=== PATIENT | male | born 1970 | race Caucasian/White ===

== ENCOUNTER 2024-02-10 20:47 | Emergency (ER) | payer MEDICARE, SELFPAY ==
[2024-02-10 20:50] VITALS: BP 149/88; PULSE 68; RESP 16; TEMP 36.4; O2SAT 98
--- NOTE | 2024-02-10 21:19 | ED.GENADUL_ITS ---
Discharge Plan Disposition Patient Disposition: Home Condition: Good Discharge Details Clinical Impression: Inverted nipple, Nipple pain, Abscess of left nipple Primary Care Provider: Unknown,Unknown ED Provider: Prema Julian Home Meds and New Rx's Prescriptions: New sulfamethoxazole-trimethoprim 800-160 mg tablet 1 tab PO BID 7 Days Qty: 14 0RF Discharge Instructions Instructions: Sulfamethoxazole/Trimethoprim (By mouth), Abscess (ED) Additional Instructions: Your history and exam are most concerning for abscess at your left nipple. As we discussed, it is imperative that you follow-up promptly with general surgery, please call tomorrow at 8 AM as they want to see you tomorrow. They are also concerned about potential breast cancer and want to ensure that they evaluate this further. The fluid collection was sent to the lab for further evaluation and testing. Please take the antibiotics as prescribed. Encourage hydration. Tylenol and ibuprofen as needed for discomfort. If you develop fever/chills, increased pain, or other new/worsening symptoms please seek care urgently once again. Otherwise, please follow-up with general surgery tomorrow. Referrals: Quintin Lei MD [ [facility] STAFF PHYSICIAN] - [facility] General Date/Time Provider Initiated Documentation: 02/10/24 21:02 . Limitations to Documentation: no limitations . Information obtained by: patient and RN notes reviewed . History of Present Illness 53 year old M presents to the emergency department with the chief complaint of swelling, pain, erythema around left nipple, described as severe and similar to prior episodes, Quality is described as stabbing and aching, and is localized to the chest. Patient reports no radiation. Patient started experiencing this week(s) and it has been constant. No relieving factors improve symptom(s), No exacerbating factors reported . Patient notes no other symptoms.. Patient did receive the following treatments prior to arrival, heat therapy Related Data Home Medications Medication Instructions Recorded Confirmed sulfamethoxazole 800 1 tab PO BID 7 days #14 tabs 02/10/24 mg-trimethoprim 160 mg tablet Previous Rx's Medication Instructions Recorded sulfamethoxazole 800 1 tab PO BID 7 days #14 tabs 02/10/24 mg-trimethoprim 160 mg tablet General Stated Complaint: GenMedical JONNA: 4 Review of Systems Constitutional Constitutional: Reports as per HPI, Denies chills, Denies fatigue, Denies fever(s), Denies malaise, Denies poor appetite, Denies weakness and Denies weight loss Musculoskeletal Musculoskeletal: Reports as per HPI Integumentary/Breasts Skin/Breast: Reports as per HPI Neurologic Neurologic: Reports as per HPI, Denies sensory deficit and Denies weakness Endocrine Endocrine: Denies fatigue Exam Const General: cooperative, healthy appearing, comfortable, no acute distress and well developed Nutritional Appearance: average body habitus and well nourished Orientation: alert and awake Chest Chest/axillae images: 2 1. Area of erythema, well-demarcated borders, tenderness with palpation, warm. Just under the nipple, patient has swelling and fluctuance. Nipple is slightly inverted on the left compared to the contralateral side. Profoundly tender to palpation. No discharge is able to be expressed. No other abnormality is notable. Resp Effort & Inspection: normal respiratory effort, able to speak in complete sentences and no respiratory distress Cardio Rate: regular rate Rhythm: regular rhythm Skin General skin exam: erythema and fluctuance Neuro General: patient alert and patient awake Cognition: normal cognition Speech: speech normal Gait: normal gait Sensory Exam: no sensory deficits noted Course Vital Signs Vital signs: Vital Signs Temperature 36.4 C 02/10/24 20:50 Pulse 68 02/10/24 20:50 Respiratory Rate 16 02/10/24 20:50 Blood Pressure 149/88 H 02/10/24 20:50 Pulse Oximetry 98 02/10/24 20:50 Temperature 36.4 C 02/10/24 20:50 Pulse 68 02/10/24 20:50 Respiratory Rate 16 02/10/24 20:50 Respiratory Effort Normal 02/10/24 20:56 Respiratory Depth Normal 02/10/24 20:56 Respiratory Pattern Normal 02/10/24 20:56 Blood Pressure 149/88 H 02/10/24 20:50 Pulse Oximetry 98 02/10/24 20:50 Oxygen Delivery Method Room Air 02/10/24 20:50 Oxygen Flow Rate 0 02/10/24 20:50 Pain Level 7 02/10/24 20:50 Procedures Abscess I/D Site: Chest Side (if applicable): Left Sedation/analgesia: None Local Anesthetic: Lidocaine 1% and With Epi Amount of anesthesia used (mL): 2 Technique: Incised with #11 Blade Amount of fluid expressed (mL): 5 Irrigation: Yes Packing used?: Iodoform Medical Decision Making Patient is a pleasant 53-year-old male with past medical history significant for SC, hypertension, hyperlipidemia, diabetes, diabetic neuropathy, presenting today with chief complaint of lump under nipple. He reports that about 2 weeks ago he began developing area of tenderness and firmness inferior to the left nipple which has since been increasing in size, pain in severity. He reports that he has been using warm compresses as this is worked well for him historically but no improvement. He denies any IV drug use. States that he smokes 1 pack/day but denies any alcohol. He has not had any fevers or chills, no other systemic symptoms. He states that the hot compresses can greatly increase his pain and he can become slightly nauseated during that time but otherwise no GI complaints. On exam, patient appears nontoxic. He is resting comfortably no acute distress. Patient has erythema and warmth as well as tenderness around the left nipple. Area of firmness concerning for potential abscess is notable. Left nipple is inverted, this is not noted on the contralateral side. Patient does not appear septic. No abnormalities palpated elsewhere about the chest. Right nipple is normal in appearance without any inversion. Ultrasound was used to evaluate the area, concerning for a large loculated abscess or multiple abscesses under the left nipple Given the location and the complexity of this abscess, I feel like it is appropriate to consult with general surgery. Discussed this plan with the patient who is in agreement. Consulted with general surgery. He advised that he is primarily concerned for breast cancer despite is initially appearing more infectious. He advised that in a patient without having any nipple piercings, trauma, lacerations that this location and the retracted nipple is very atypical. He would like to see the patient tomorrow in clinic. He did advise a small stab incision under the nipple with culture and outpatient follow-up for repeat ultrasound. He did advise placing a small wick for the patient to continue with hot compresses. For antibiotics, he advised MRSA coverage as patient is a diabetic, recommended Bactrim. Discussed this plan with the patient. We discussed her/benefits as well as expected procedural steps associated with incision and drainage, patient voiced understanding and wished to proceed. When I did speak with general surgery, I expressed my concerns with loculations and complexity of the abscess, he advises simple stab incision would likely be of great benefit and move forward with this plan this evening. Please see procedure note. Patient discussed risk/benefits as well as expected procedural steps associated with incision and drainage. Voices understanding and wished to proceed. Procedure was performed using standard sterile technique. Cleansed with chlorhexidine. After superficial lidocaine, patient was injected with 1% lidocaine with epi. Point of maximal fluctuance, just inferior to the nipple, was identified. After sufficient anesthesia was able to be obtained, a 1 cm incision was made using an 11 blade. Patient had immediate relief in his discomfort after release of purulent discharge. This was sent to lab. Further expression of pus was performed. Attempts to break up loculations were made although patient's pain did limit this to some degree. Abscess was flushed with sterile water and packed with iodoform gauze, dressing applied over this. No complications Patient tolerated procedure well. Dosing of Bactrim for tonight tomorrow morning given to the patient at the time of discharge. Rest of the prescription was sent to his pharmacy of choice. Per recommendations from general surgery, advised the patient to call their office tomorrow morning to schedule follow-up appointment tomorrow for further evaluation. We did discuss the concern regarding possible breast cancer. His history and clinical exam are most consistent with infection but given the retraction of the nipple and atypical location of this, I do certainly appreciate these concerns and to voice them to the patient. He does not have any significant family history of breast cancer. Return precautions were discussed. He will leave the dressing and packing in place until seen by general surgery. He will continue with warm compresses. All of his questions and concerns were addressed and he is agreement this plan. Quality:SDOH Health Related Social Needs: 2 No Data to Display [facility] All Active Problems (Updated 02/10/24 @ 22:47 by TIFFANIE Curry) Abscess of left nipple (Acute) Nipple pain (Acute) Inverted nipple (Acute) Social History Smoking/Tobacco Use Status: Never Smoking risk assessment performed?: Yes Alcohol Intake: never Substance use type: does not use
--- NOTE | 2024-02-10 22:03 | NUR.NOTE ---
Pt referral sent to general surgery per Eliel for possible breast cancer /abscess to be seen 02/11/24. Consult with Do teixeira today.
[2024-02-10] MEDS: Lidocaine/Epinephri/Tetracaine Topical Gel 3 ML (22:53)
[2024-02-10] MEDS: Sulfameth/Trimeth DS, 2 TABS/BTL 1 TAB PO (23:00)
[2024-02-10 23:09] VITALS: BP 120/86; PULSE 75; RESP 18; TEMP 36.8; O2SAT 97
== END 2024-02-10 23:09 | disposition home or self-care (01) ==
PROVIDERS: Emergency Provider Physician Assistant
DX: N63.20 Unspecified lump in the left breast, unspecified quadrant (principal); N64.59 Other signs and symptoms in breast; N61.1 Abscess of the breast and nipple; I10 Essential (primary) hypertension; E78.5 Hyperlipidemia, unspecified; I25.2 Old myocardial infarction; E11.40 Type 2 diabetes mellitus with diabetic neuropathy, unspecified
CPT/HCPCS: 10061; 99284; 87070; 87205

== ENCOUNTER → 2024-02-11 14:43 | Outpatient (CLI) | payer MEDICARE, SELFPAY ==
--- NOTE | 2024-02-11 11:45 | DI.US_ITS ---
Exam(s) US BREAST LT COMPLETE EXAM: US BREAST LT COMPLETE CLINICAL HISTORY: left breast abscess, N64.59. TECHNIQUE: Complete ultrasound of the breast was performed including all 4 quadrants, the retroareo lar region, and the ipsilateral axilla. COMPARISON: None. This is a 53-year-old patient was apparently seen in the emergency room last nigh t there an incision and drainage was performed. FINDINGS: LEFT BREAST ULTRASOUND: There is an irregular finding in the retroareolar region measuring approximately 2.5 x 2 cm which has appearance of an abscess. There are no other significant focal findings in 4 quadrants and scanning of the left axilla is negative for adenopathy. IMPRESSION: Appearance is consistent with a retroareolar region abscess measuring approximately 2.5 x 2 cm. Appropriate follow-up is repeat ultrasound examination after definitive surgical/antibiotic therapy. BI-RADS Category 3 - 3 month - Probably Benign Finding: Recommend follow-up A SOUND in 3 months Breast Density - Category B - Scattered areas of fibroglandular density Breast density Category C or D implies that the patient has dense breast tissue. Dense breast tissue can make it harder to find cancer on a mammogram. Dense breast tissue is also associated with an incr eased risk of breast cancer. This information about the result of the mammogram report was provided to the patient to raise their awareness. Use this report when you speak with the patient about their risks for breast cancer, which includes their family history. At that time, you may recommend additional screening tests (Ultrasoun d or MRI) as these tests may add significant information. A negative radiographic report should not delay biopsy if a dominant or clinically suspicious mass is present. Up to ten percent of cancers are not identified on mammography. A negative report may reinforce clinical impression. Adenosis and dense breasts may obscure an underlying neoplasm. False positive reports average 6 to 10%. Patient will receive a letter notifying them of these results.
[2024-02-11 13:36] LABS: HCT 54.3 % (40.0-50.0); HGB 18.5 g/dL (13.5-17.5); MCH 31.6 pg (27.0-33.0); MCHC 34.1 % (32.0-36.0); MCV 93 fL (80-95); MPV 11.3 fL (8.0-11.0); Platelet Count 242 10^3/uL (130-400); RBC 5.85 10^6/uL (4.36-5.78); RDW 12.7 % (11.8-14.1); RDW-SD 43.5 fL; WBC 12.81 10^3/uL (4.4-10.8)
[2024-02-11 13:51] LABS: ALT 28 U/L (16-63); AST 11 U/L (15-37); Alkaline Phosphatase 85 U/L (46-116); BUN 26 mg/dL (7-18); Bilirubin, Total 0.4 mg/dL (0.2-1.0); CREATININE 1.1 mg/dL (0.70-1.30); Calcium 9.7 mg/dL (8.5-10.1); Calculated LDL 79 mg/dL (<100); Chloride 102 mmol/L (98-107); Cholesterol 181 mg/dL (<200); Estimated GFR 80.77 (mL/min/1.73m2); Glucose 167 mg/dL (74-106); HDL Cholesterol 41 mg/dL (40-60); Potassium 4.5 mmol/L (3.5-5.1); Sodium 139 mmol/L (136-145); Total Protein 8.2 g/dL (6.4-8.2); Triglyceride 306 mg/dL (<150)
[2024-02-11 13:59] LABS: C-Reactive Protein 0.99 mg/dL (<or=0.5)
== END ==
PROVIDERS: PCP Family Medicine; Visit Provider Surgery
DX: N64.59 Other signs and symptoms in breast (principal); I10 Essential (primary) hypertension; E11.9 Type 2 diabetes mellitus without complications; N64.4 Mastodynia; N61.1 Abscess of the breast and nipple; K21.9 Gastro-esophageal reflux disease without esophagitis
CPT/HCPCS: 76642; 80053; 80061; 85027; 87040; 83036; 86140

== ENCOUNTER 2024-02-12 13:10 | Day surgery (SDC) | payer MEDICARE, SELFPAY ==
[2024-02-12 13:28] VITALS: BP 122/94; PULSE 76; RESP 16; TEMP 36; O2SAT 96
[2024-02-12] MEDS: Lactated Ringers 1,000 ML 80 ML IV (13:48)
[2024-02-12] MEDS: Acetaminophen 500 MG TAB 1000 MG PO (13:53)
[2024-02-12] MEDS: Gabapentin 300 MG CAP 600 MG PO (13:55)
[2024-02-12] MEDS: VANCOMYCIN/WATER (PEG) 1 GM/200 ML BAG IVPB (13:57)
--- NOTE | 2024-02-12 14:15 | RT.EKG_ITS ---
APPROVED REPORT Exam: Resting ECG Reason for Exam: Pre-op with cardiac stent hx Patient Location: O HR:72 bpm ECG Measurements Heart Rate 72 AXIS MA 155 P 35 QRSd 95 QRS 268 QT 387 T 66 QTc 424 Conclusion Sinus rhythm...normal P axis, V-rate 60- 99 Ventricular bigeminy...bigeminy string>4 w/ V complexes Inferior infarct, old...Q >35mS, II III aVF
--- NOTE | 2024-02-12 14:35 | ANES.PREOP_ITS ---
General Info Date of Service Date Performed: 02/12/24 Height: 5 ft 7 in Weight: 97.3 kg Body Mass Index (BMI): 33.5 Surgical Procedure: Operation Date: 02/12/24 12:40 Proposed Procedure Side Surgeon p I&D Breast Abscess Left Sara Abdalla DO Meds Allergies and Home Medications Allergies Allergy/AdvReac Type Severity Reaction Status Date / Time morphine Allergy Severe Anaphylaxis Verified 02/12/24 13:41 Home Medication Medication Instructions Recorded sulfamethoxazole 800 1 tab PO BID 7 days #14 tabs 02/10/24 mg-trimethoprim 160 mg tablet aspirin 81 mg capsule 81 mg PO DAILY 02/11/24 bupropion HCl 300 mg 24 hr tablet, 300 mg PO QAM 02/11/24 extended release (Wellbutrin XL) dulaglutide 3 mg/0.5 mL 3 mg subcut QWEEK 02/11/24 subcutaneous pen injector (Trulicity) gabapentin 600 mg tablet 1,200 mg PO BID 02/11/24 ipratropium bromide 18 2 puff inhalation Q6H 02/11/24 mcg/actuation aerosol inhaler lisinopril 10 mg tablet 10 mg PO DAILY 02/11/24 metformin 500 mg tablet 500 mg PO BID 02/11/24 metoprolol succinate 100 mg 100 mg PO DAILY 02/11/24 tablet,extended release 24 hr omeprazole 40 mg capsule,delayed 40 mg PO DAILY 02/11/24 release rosuvastatin 10 mg tablet 10 mg PO DAILY 02/11/24 tiotropium bromide 2.5 2 puff inhalation DAILY 02/11/24 mcg/actuation mist for inhalation (Spiriva Respimat) Current Visit Medications: Current Medications Generic Name Dose Route Start Last Admin Trade Name Freq PRN Reason Stop Dose Admin Acetaminophen 1,000 mg 02/12/24 06:00 02/12/24 13:53 Acetaminophen 500 Mg Tab PO 02/12/24 23:59 1,000 mg PREOP ULISES Administration Gabapentin 600 mg 02/12/24 06:00 02/12/24 13:55 Gabapentin 300 Mg Cap PO 02/12/24 23:59 600 mg PREOP ULISES Administration Ringer's Solution 1,000 mls @ 80 mls/hr 02/12/24 06:00 02/12/24 13:48 IV 02/12/24 23:59 80 mls/hr INFUSION ULISES Administration Ondansetron HCl 4 mg/ Sodium 52 mls @ 200 mls/hr 02/12/24 10:12 Chloride IVPB 03/13/24 10:11 Q6H PRN PRN IV Miscellaneous Supplies 1 each 02/12/24 06:00 Iv Access IV 02/12/24 23:59 DIRECTED ULISES Sodium Chloride 0 ml 02/12/24 06:00 Normal Saline Flush 10 Ml Syr IV 02/12/24 23:59 PRN PRN Sodium Chloride 0 ml 02/12/24 06:00 Normal Saline 10 Ml Vial IJ 02/12/24 23:59 DIRECTED PRN Sterile Water 0 ml 02/12/24 06:00 Water,Injection,Sterile 10 Ml Vial IJ 02/12/24 23:59 DIRECTED PRN Tramadol HCl 50 mg 02/12/24 10:12 Tramadol 50 Mg Tab PO 03/13/24 10:11 Q6H PRN PRN Pain PFSH Active Problems Active Problems: Problem Status Onset Code GERD (gastroesophageal reflux disease) K21.9 HTN (hypertension) I10 Diabetes E11.9 Abscess of left nipple N61.1 Nipple pain N64.4 Inverted nipple N64.59 Medical History Medical History Neuropathy Medical History Comments:: 02/12/24: pt has smoked 5 cigarettes prior to coming into [facility] Pt reports he as 6 stents Tobacco Smoking/Tobacco Use Status: Current every day Tobacco Type: cigarettes Alcohol Alcohol Intake: never Substance Use Substance use: Never Substance use type: does not use Vital Signs and Lab Results Vital Signs Most Recent Vital Signs in EMR: Most Recent Vital Signs Temp Pulse Resp BP Pulse Ox 36 C L 76 16 122/94 H 96 02/12/24 13:28 02/12/24 13:28 02/12/24 13:28 02/12/24 13:28 02/12/24 13:28 Point of Care Results Point of Care Results: Finger Stick Blood Glucose 189 02/12/24 13:52 Lab Results Blood Type / Crossmatch: No Data to Display Complete Blood Count: White Blood Count 12.81 10^3/uL (4.4-10.8) H 02/11/24 13:18 Red Blood Count 5.85 10^6/uL (4.36-5.78) H 02/11/24 13:18 Hemoglobin 18.5 g/dL (13.5-17.5) H 02/11/24 13:18 Hematocrit 54.3 % (40.0-50.0) H 02/11/24 13:18 Platelet Count 242 10^3/uL (130-400) 02/11/24 13:18 Complete Metabolic Panel: Sodium 139 mmol/L (136-145) 02/11/24 13:18 Potassium 4.5 mmol/L (3.5-5.1) 02/11/24 13:18 Chloride 102 mmol/L (98-107) 02/11/24 13:18 Carbon Dioxide 27.0 mmol/L (21.0-32.0) 02/11/24 13:18 BUN 26 mg/dL (7-18) H 02/11/24 13:18 Creatinine 1.1 mg/dL (0.70-1.30) 02/11/24 13:18 Est GFR (CKD-EPI 2020) 80.77 (mL/min/1.73m2) 02/11/24 13:18 Calcium 9.7 mg/dL (8.5-10.1) 02/11/24 13:18 Albumin 4.0 g/dL (3.4-5.0) 02/11/24 13:18 Glucose 167 mg/dL (74-106) H 02/11/24 13:18 Hemoglobin A1c 7.0 % (<5.7) H 02/11/24 13:18 C-Reactive Protein 0.99 mg/dL (<or=0.5) H 02/11/24 13:18 Liver Function Panel: Alanine Aminotransferase (ALT/SGPT) 28 U/L (16-63) 02/11/24 13: 18 Aspartate Amino Transf (AST/SGOT) 11 U/L (15-37) L 02/11/24 13: 18 Coagulation Panel: No Data to Display Cardiac Panel: No Data to Display Arterial Blood Gas: No Data to Display Venous Blood Gas: No Data to Display Pancreas Panel: No Data to Display Thyroid Panel: No Data to Display Infectious Disease: No Data to Display Blood Cultures: No Data to Display Toxicology Panel: No Data to Display Anesthesia Assessment and Plan Anesthesia History Personal History: No History of Anesthesia Complications Family History: No Family History of Anesthesia Complications Exercise Tolerance Exercise Tolerance: Metabolic Equivalents>4 Pertinent Negatives Pertinent Negatives: No Symptoms of GERD Cardiac & Pulmonary Exam Cardiac Exam: Normal S1/S2 Heart Sounds Pulmonary Exam: Clear Bilateral Breath Sounds Implantable Cardiac Device Does patient have a Pacemaker or an ICD?: No Airway Exam Known Difficult Airway: No Mallampati Class: 2 Mouth Opening: Normal (> 3cm) Thyromental Distance: Greater than 3 cm Neck Range of Motion: Full ROM Neck Circumference: Normal Teeth Condition: Normal Dentition ASA Classification ASA Score: ASA 3 Emergency Case?: No NPO Status NPO Status: NPO Clears >2 hours, Solids >8 hours Anesthesia Plan Resuscitation Status: Full Code Anesthesia Technique: General Anesthesia Airway Planned: LMA Monitors Used: Standard Monitors
[2024-02-12 14:37] VITALS: BMI 33.5
--- NOTE | 2024-02-12 15:37 | BREAST_PTH ---
PATIENT: Nico Tellez LOC: [facility] U#:[id number] AGE/SX: 53/M ROOM: RE02/12/[address]: Sara Abdalla : 1970 BED: DIS: 02/12/2024 SPEC #: [id number] RECD: 02/12/24 17:10 STATUS: SARAI RE #: [id number] SARA: 02/12/24 15:[address]: Sara Abdalla DEPT: Surgical Specimen RECD BY: Daniela Mercado ENTERED: 02/12/24 17:11 SP TYPE: Breast OTHR DR: Eddy Pozo MD Tissues: 1 - BREAST BX NEEDLE Procedures: GROSS AND MICRO LEVEL 4 Comments: [id number]
[2024-02-12 15:47] VITALS: BP 126/79; PULSE 69; RESP 17; TEMP 36.4; O2SAT 100
[2024-02-12 15:52] VITALS: BP 125/81; PULSE 69; RESP 20; TEMP 36.4; O2SAT 93
[2024-02-12 15:57] VITALS: BP 125/81; PULSE 69; RESP 19; TEMP 36.4; O2SAT 94
--- NOTE | 2024-02-12 15:57 | W.ANESPOSTOP ---
Postoperative Evaluation Date, Time and Location Date Performed: 02/12/24 Time Performed: 15:57 Patient Location: PACU Vital Signs Most Recent Imported Vital Signs: Most Recent Vital Signs Temp Pulse Resp BP Pulse Ox 36.4 C L 76 16 122/94 H 96 02/12/24 15:47 02/12/24 13:28 02/12/24 13:28 02/12/24 13:28 02/12/24 13:28 Assessment Mental Status: Awake (Alert & Oriented to Patient Baseline) Airway and Respiratory Function: Patent airway with normal (patient baseline) respiratory exam Cardiovascular Function: Hemodynamically Stable Hydration Status: Adequately Hydrated Nausea & Vomiting: No Nausea or Vomiting Pain: Pt. Denies Any Pain Peripheral Nerve Block: Patient did not receive a nerve block
--- NOTE | 2024-02-12 16:06 | PDOC.DSDIS_ITS ---
Date of service: 02/12/24 Time of Service: 16:06 Discharge Plan Disposition Patient Disposition: Home Condition: Good Discharge Details Reason For Visit: I&D of abscess Attending Provider: Sara Abdalla Primary Care Provider: Eddy Pozo Home Meds and New Rx's Prescriptions: New ketorolac 10 mg tablet 10 mg PO Q8H PRN5 Days Qty: 15 0RF Rx Instructions: do not take with aspirin or ibuprofen Continued lisinopril 10 mg tablet 10 mg PO DAILY metoprolol succinate 100 mg tablet extended release 24 hr 100 mg PO DAILY metformin 500 mg tablet 500 mg PO BID Trulicity 3 mg/0.5 mL pen injector 3 mg subcut QWEEK Spiriva Respimat 2.5 mcg/actuation mist 2 puff inhalation DAILY ipratropium bromide 18 mcg/actuation aerosol 2 puff inhalation Q6H rosuvastatin 10 mg tablet 10 mg PO DAILY bupropion HCl [Wellbutrin XL] 300 mg tablet extended release 24 hr 300 mg PO QAM omeprazole 40 mg capsule,delayed release(DR/EC) 40 mg PO DAILY gabapentin 600 mg tablet 1,200 mg PO BID aspirin 81 mg capsule 81 mg PO DAILY sulfamethoxazole-trimethoprim 800-160 mg tablet 1 tab PO BID 7 Days Qty: 14 0RF Discharge Instructions Additional Instructions: Wound Care Instruction Pain Control Use ice!? Ice keeps the swelling down and swelling is what causes pain.? Never apply ice directly to the skin.? Wrap it in a towel or cloth.? Apply ice 20 minutes on and 20 minutes off for pain control.? Use as needed. Take Tylenol 500 mg by mouth with food every 4 hours as needed for pain. Toradol 10 mg every 8 hours as needed for pain. Take with food. Do not take with aspirin or ibuprofen. -Finish Bactrim Your health care provider has covered your wound with a wet-to-dry dressing. With this type of dressing, a wet (or moist) gauze dressing is put on your wound and allowed to dry. Wound drainage and tissue can be removed when you take off the old dressing. Follow any instructions you are given on how to change the dressing. Use this sheet as a reminder. What to Expect at Home Your provider will tell you how often you should change your dressing at home. As the wound heals, you should not need as much gauze or packing gauze. Removing the Old Dressing Follow these steps to remove your dressing: ? Wash your hands thoroughly with soap and warm water before and after each dressing change. Remove the old dressing. If it is sticking to your skin, wet it with warm water to loosen it. ? Remove the gauze pads or packing tape from inside your wound. ? Changing Your Dressing Follow these steps to put a new dressing on: ? Place the gauze pads or packing tape in your wound. Carefully fill in the wound and any spaces under the skin.? Use a cotton tip applicator to gently push the packing material into the wound. ? Cover the wet gauze or packing tape with a large dry dressing pad. Use tape or rolled gauze to hold this dressing in place. ? Wash your hands again when you are finished. When to Call the Doctor Call your doctor if you have any of these changes around your wound: ? Worsening redness ? More pain ? Swelling ? Bleeding ? It is larger or deeper ? It looks dried out or dark ? The drainage is increasing ? The drainage has a bad smell Also call your doctor if: ? Your temperature is 100.5?F (38?C), or higher, for more than 4 hours ? Drainage is coming from or around the wound ? Drainage is not decreasing after 3 to 5 days ? Drainage is increasing ? Drainage becomes thick, ford, yellow, or smells bad As your incision heals, the skin may appear pink or red. It may also feel slightly bumpy or raised. This is called a healing ridge. Over time, the color should fade and the raised skin will become less noticeable. When to seek medical care Call your healthcare provider right away if you have any of these: ? More pain, redness, swelling, bleeding, or foul-smelling discharge around the incision area ? Fever of 101?F (38.3?C) or higher, or as directed by your child's healthcare provider ? Shaking chills ? Vomiting or nausea that doesn?t go away ? Numbness, coldness, or tingling around the incision area, or change s in skin color ? Opening of the sutures or wound -Stitches or herbert that come apart or fall out or surgical tape falls off before 7 days, or as directed by your healthcare provider ?[facility]: [phone] You will need to call on Thursday for an appointment as the office is closed now. We do want you to follow-up next week to make sure that your wound is progressing. Stand Alone Forms: Anesthesia Discharge Inst., Renea Huynh ([facility]) Referrals: Sara Abdalla, DO [OSTEOPATHIC DOCTOR] - Activity:: No lifting over 10 pounds x 1 week Remove Dressings/Wound Care:: 24 hours Shower/Bathe:: 24 hours Diet:: Carb Counting Discharge Orders Discharge Orders: Discharge Order (Routine); Ordered 02/12/24 Ordered By: Sara Abdalla DS: Diagnosis Discharge Diagnosis (1) HTN (hypertension): Status: Chronic (2) Diabetes: Status: Chronic (3) GERD (gastroesophageal reflux disease): Status: Chronic (4) Abscess of left nipple: Status: Acute (5) Smoker: Status: Acute
[2024-02-12 16:08] VITALS: BP 113/78; PULSE 69; RESP 16; TEMP 36.1; O2SAT 94
--- NOTE | 2024-02-12 16:30 | W.PM.OP ---
Date of service: 02/12/24 Time of Service: 16:30 Operative Note Operative Note DATE OF PROCEDURE: 02/12/24 PRE-OP DIAGNOSIS: Left breast abscess POST-OP DIAGNOSIS: same PROCEDURE: Incision and drainage left breast abscess 6 o'clock position SURGEON: Sara Abdalla ANESTHESIA TYPE: Local By Surgeon and General LMA/ETT Refer to Anesthesia Record ESTIMATED BLOOD LOSS: 2 PATHOLOGY: other Patient was transported to: PACU Patient's condition: stable Procedure Description: Patient has developed a left breast abscess at the 6 o'clock position and is here today for incision and drainage. Informed consent is obtained explaining risks and benefits of the above procedure including but not limited to: Bleeding, infection, pneumonia, blood clots, complications of anesthesia poor cosmesis. Patient understands he is going to need to do packing and dressing changes. There will be delayed healing. Patient is brought to the operative suite and placed in the supine position. Anesthesia was administered per the department of anesthesia. He did receive preoperative antibiotics. He is prepped and draped in the usual sterile fashion using a Betadine scrub solution. 20 cc of 1% lidocaine with epi is used for local anesthesia. The previous incision incision made by the emergency department is increased to a 3 cm incision using a #12 blade. Cultures are taken. However he has been on antibiotics for 2 days previously. A curette is used to remove all nonviable tissue. Tissue was sent for biopsy as well. There are no masses or signs of malignant malignancy. The wound is irrigated with 500 cc of saline. Cautery was used to provide hemostasis. It is then packed with sterile gauze. Sterile dressings are applied. Patient tolerated procedure well without complication and transferred to recovery room in stable condition.
[2024-02-12 16:38] VITALS: BP 116/88; PULSE 69; RESP 16; TEMP 36.5; O2SAT 96
[2024-02-12] MEDS: Ketorolac 15 MG/ML VIAL IVP (16:45)
== END 2024-02-12 17:15 | disposition home or self-care (01) ==
PROVIDERS: PCP Family Medicine; Visit Provider Surgery
PROC: (CPT 19020; principal; 2024-02-12 12:30)
DX: N61.1 Abscess of the breast and nipple (principal); E11.9 Type 2 diabetes mellitus without complications; Z79.84 Long term (current) use of oral hypoglycemic drugs; F17.210 Nicotine dependence, cigarettes, uncomplicated; I10 Essential (primary) hypertension; K21.9 Gastro-esophageal reflux disease without esophagitis; N64.89 Other specified disorders of breast
CPT/HCPCS: 19020; 88305; 87070; 87075; 87205; 93005; 93010; J1885; J2001; J2004; J2704; J3372

== ENCOUNTER 2024-02-13 11:28 | Emergency (ER) | payer MEDICARE, SELFPAY ==
[2024-02-13 11:32] VITALS: BP 136/79; PULSE 78; RESP 18; TEMP 35.9
[2024-02-13 11:51] VITALS: RESP 18
[2024-02-13 11:53] VITALS: BP 136/79; PULSE 78; RESP 18; TEMP 35.9
[2024-02-13] MEDS: Lidocaine/Epinephri/Tetracaine Topical Gel 3 ML (12:12)
[2024-02-13] MEDS: diazePAM 5 MG TAB PO (12:18)
[2024-02-13 12:36] VITALS: BP 110/78; PULSE 77; RESP 18; O2SAT 95
[2024-02-13 13:45] VITALS: BP 138/85; PULSE 74; RESP 18; O2SAT 96
--- NOTE | 2024-02-13 15:06 | W.ED.GENAD ---
Discharge Plan Disposition Patient Disposition: Home Discharge Details Clinical Impression: Encounter for postoperative wound care Primary Care Provider: Eddy Pozo ED Provider: Daniela Bermudez Home Meds and New Rx's Prescriptions: New diazepam [Valium] 5 mg tablet 5 mg PO TID PRNQty: 10 0RF Continued lisinopril 10 mg tablet 10 mg PO DAILY metoprolol succinate 100 mg tablet extended release 24 hr 100 mg PO DAILY metformin 500 mg tablet 500 mg PO BID Trulicity 3 mg/0.5 mL pen injector 3 mg subcut QWEEK Spiriva Respimat 2.5 mcg/actuation mist 2 puff inhalation DAILY ipratropium bromide 18 mcg/actuation aerosol 2 puff inhalation Q6H rosuvastatin 10 mg tablet 10 mg PO DAILY bupropion HCl [Wellbutrin XL] 300 mg tablet extended release 24 hr 300 mg PO QAM omeprazole 40 mg capsule,delayed release(DR/EC) 40 mg PO DAILY gabapentin 600 mg tablet 1,200 mg PO BID aspirin 81 mg capsule 81 mg PO DAILY sulfamethoxazole-trimethoprim 800-160 mg tablet 1 tab PO BID 7 Days Qty: 14 0RF ketorolac 10 mg tablet 10 mg PO Q8H PRN5 Days Qty: 15 0RF Rx Instructions: do not take with aspirin or ibuprofen Discharge Instructions Additional Instructions: apply saline topically to moisten before changing take valium 1 hour before changing dressing Valium is addictive and should be used sparingly, do not combine within 8 hours of having any alcohol and do not operate your vehicle for 8 hours after taking this medication, this is only for the purposes of changing this dressing Follow-up with surgery as directed and change dressings as directed Return as redness, fever, worsening pain Referrals: Eddy Pozo MD [Primary Care Provider] - Sara Abdalla DO [OSTEOPATHIC DOCTOR] - [facility] General Date/Time Provider Initiated Documentation: 02/13/24 11:52. [facility] Narrative: This 53-year-old male presents with report of needing packing removed and were changed to left breast abscess. Patient is post incision and drainage by Dr. Abdalla yesterday. He was instructed to change the wick daily with dressing changes and is currently taking antibiotics. He denies any new complaints at this time and is otherwise feeling improved. He states he declined pain medication but has been in some discomfort and is concerned that this will increase with changing the dressing. Related Data Home Medications Medication Instructions Recorded Confirmed sulfamethoxazole 800 1 tab PO BID 7 days #14 tabs 02/10/24 02/13/24 mg-trimethoprim 160 mg tablet aspirin 81 mg capsule 81 mg PO DAILY 02/11/24 02/13/24 bupropion HCl 300 mg 24 hr tablet, 300 mg PO QAM 02/11/24 02/13/24 extended release (Wellbutrin XL) dulaglutide 3 mg/0.5 mL 3 mg subcut QWEEK 02/11/24 02/13/24 subcutaneous pen injector (Trulicity) gabapentin 600 mg tablet 1,200 mg PO BID 02/11/24 02/13/24 ipratropium bromide 18 2 puff inhalation Q6H 02/11/24 02/13/24 mcg/actuation aerosol inhaler lisinopril 10 mg tablet 10 mg PO DAILY 02/11/24 02/13/24 metformin 500 mg tablet 500 mg PO BID 02/11/24 02/13/24 metoprolol succinate 100 mg 100 mg PO DAILY 02/11/24 02/13/24 tablet,extended release 24 hr omeprazole 40 mg capsule,delayed 40 mg PO DAILY 02/11/24 02/13/24 release rosuvastatin 10 mg tablet 10 mg PO DAILY 02/11/24 02/13/24 tiotropium bromide 2.5 2 puff inhalation DAILY 02/11/24 02/13/24 mcg/actuation mist for inhalation (Spiriva Respimat) ketorolac 10 mg tablet 10 mg PO Q8H PRN 5 days #15 tabs 02/12/24 02/13/24 diazepam 5 mg tablet (Valium) 5 mg PO TID PRN #10 tabs 02/13/24 Previous Rx's Medication Instructions Recorded sulfamethoxazole 800 1 tab PO BID 7 days #14 tabs 02/10/24 mg-trimethoprim 160 mg tablet ketorolac 10 mg tablet 10 mg PO Q8H PRN 5 days #15 tabs 02/12/24 diazepam 5 mg tablet (Valium) 5 mg PO TID PRN #10 tabs 02/13/24 Allergies Allergy/AdvReac Type Severity Reaction Status Date / Time morphine Allergy Severe Anaphylaxis Verified 02/13/24 11:36 General Stated Complaint: GenMedical JONNA: 3 Exam Narrative Exam Narrative: Alert and oriented 53-year-old gentleman, incision and drainage site in the 6 o'clock position below nipple, no surrounding erythema, wick in place, no active bleeding Course Vital Signs Vital signs: Vital Signs Temperature 35.9 C L 02/13/24 11:32 Pulse 78 02/13/24 11:32 Respiratory Rate 18 02/13/24 11:32 Blood Pressure 136/79 02/13/24 11:32 Temperature 35.9 C L 02/13/24 11:53 Pulse 74 02/13/24 13:45 Respiratory Rate 18 02/13/24 13:45 Respiratory Effort Normal, Non-Labored 02/13/24 12:36 Respiratory Depth Normal 02/13/24 12:36 Respiratory Pattern Normal 02/13/24 12:36 Blood Pressure 138/85 02/13/24 13:45 Blood Pressure Mean 88 02/13/24 12:36 Blood Pressure Position Supine 02/13/24 12:36 Pulse Oximetry 96 02/13/24 13:45 Oxygen Delivery Method Room Air 02/13/24 12:36 Oxygen Flow Rate 0 02/13/24 12:36 Pain Level 6 02/13/24 11:53 Medical Decision Making Alert and oriented 53-year-old male, no acute distress stable vitals, liquids and removed after applying let topically and giving volume for anxiety and to help with discomfort. Wick was removed, approximately 12 inches and patient tolerated the procedure, however was uncomfortable. A small amount of liquids replaced as patient was able to tolerate and dressing applied, he will continue on with his care management plan as discussed with Dr. Abdalla and follow-up with her according to discharge instructions. Discharged home in stable condition with stable vitals Quality:SDOH Health Related Social Needs: No Data to Display PFSH All Active Problems (Updated 02/13/24 @ 13:30 by TIFFANIE Cullen) Encounter for postoperative wound care (Acute) Smoker (Acute) GERD (gastroesophageal reflux disease) (Chronic) HTN (hypertension) (Chronic) Diabetes (Chronic) Abscess of left nipple (Acute) Nipple pain (Acute) Inverted nipple (Acute) Medical History (Updated 02/13/24 @ 13:30 by TIFFANIE Cullen) Neuropathy Social History Smoking/Tobacco Use Status: Current every day Tobacco Type: cigarettes Smoking risk assessment performed?: Yes Alcohol Intake: never Drug use: Never Substance use type: does not use Housing: apartment Do you feel safe at home: Yes (Unable to assess privately) Do you feel safe in your relationship?: Yes
== END 2024-02-13 13:45 | disposition home or self-care (01) ==
PROVIDERS: Emergency Provider Physician Assistant; PCP Family Medicine
DX: Z48.01 Encounter for change or removal of surgical wound dressing (principal); I10 Essential (primary) hypertension; E11.9 Type 2 diabetes mellitus without complications; F17.210 Nicotine dependence, cigarettes, uncomplicated; Z79.84 Long term (current) use of oral hypoglycemic drugs; Z79.82 Long term (current) use of aspirin
CPT/HCPCS: 99283

== ENCOUNTER → 2024-02-19 08:13 | Outpatient (BNVA) | payer MEDICARE, SELFPAY | PROVIDERS: PCP Family Medicine; Referring Provider Family Medicine; Visit Provider Physical Therapy Assistant | DX: Z48.89 Encounter for other specified surgical aftercare (principal) ==

== ENCOUNTER → 2024-02-22 09:28 | Outpatient (BNVA) | payer MEDICARE, SELFPAY | PROVIDERS: PCP Family Medicine; Referring Provider Family Medicine; Visit Provider Physical Therapy Assistant | DX: Z48.89 Encounter for other specified surgical aftercare (principal) | CPT/HCPCS: 99441 ==

== ENCOUNTER → 2024-02-26 07:50 | Outpatient (BNVA) | payer MEDICARE, SELFPAY | PROVIDERS: PCP Family Medicine; Referring Provider Family Medicine; Visit Provider Physical Therapy Assistant | DX: Z48.817 Encounter for surgical aftercare following surgery on the skin and subcutaneous tissue (principal) ==